=== PATIENT | female | born 1945 | race Caucasian/White ===

== ENCOUNTER 2017-08-24 09:10 | Day surgery (SDC) | payer OTHER ==
[~2017-08-24 09:10] MED LIST: LIDOCAINE HCL 1% MPF SOL ONE; PROPOFOL 500 MG/50 ML EMU IV ONE
[2017-08-24 11:01] VITALS: BP 140/86; PULSE 74; RESP 18; TEMP 97.6; O2SAT 96
== END 2017-08-24 11:22 | disposition home or self-care (01) | DRG 951 ==
LOC: SURG 09:10
PROVIDERS: ATTEND Surgery
DX: Z12.11 Encounter for screening for malignant neoplasm of colon (principal); D12.2 Benign neoplasm of ascending colon; K57.30 Diverticulosis of large intestine without perforation or abscess without bleeding; Z80.0 Family history of malignant neoplasm of digestive organs; Z86.010 Personal history of colon polyps
CPT/HCPCS: J2001; J2704

== ENCOUNTER 2018-10-10 13:11 | Emergency (ER) | payer OTHER ==
[2018-10-10] MEDS ORDERED: SODIUM CHLORIDE 0.9% FLUSH 10 ML SOL IV PRN (13:35)
[2018-10-10 13:47] LABS: HEMATOCRIT 42 % (35-47); MEAN CORPUSCULAR HEMOGLOBIN 30.4 pg (27.0-32.0); MEAN CORPUSCULAR VOLUME 92 fL (81-99)
[2018-10-10 14:00] LABS: INR 0.99 (0.86-1.12)
[2018-10-10 14:03] LABS: BAND NEUTROPHILS % (MANUAL) 2 %; BASOPHILS % (MANUAL) 0 % (0-3); EOSINOPHILS % (MANUAL) 1 % (0-9); LYMPHOCYTES % (MANUAL) 43 % (10-50); MONOCYTES % (MANUAL) 4 % (0-12); NEUTROPHILS % (MANUAL) 50 % (37-80); NORMAL RBCS PRESENT
[2018-10-10 14:04] LABS: ALBUMIN 3.5 gm/dl (3.4-5.0); ALKALINE PHOSPHATASE 87 IU/L (46-116); ALT 23 IU/L (14-63); AST 25 IU/L (15-37); BILIRUBIN,TOTAL 0.4 mg/dl (0.2-1.0); BLOOD UREA NITROGEN 10 mg/dl (7-18); CALCIUM 9.1 mg/dl (8.5-10.1); CARBON DIOXIDE 27.2 mEq/L (21-32); CHLORIDE 95 mMol/L (98-107); CREATINE KINASE 73 U/L (26-192); CREATININE 0.71 mg/dl (0.60-1.00); GLUCOSE 108 mg/dl (74-106); POTASSIUM 4.2 mMol/L (3.5-5.1); SODIUM 130 mMol/L (136-145); TROP I < 0.017 ng/ml (0.000-0.056)
[2018-10-10 14:14] VITALS: TEMP 97
[2018-10-10 16:29] VITALS: O2SAT 96
[2018-10-10 18:29] VITALS: BP 173/90; PULSE 72; RESP 24
== END 2018-10-10 18:14 | disposition home or self-care (01) | DRG 313 ==
LOC: ED 13:11
DX: R07.89 Other chest pain (principal)
CPT/HCPCS: 36415; 71045; 80053; 82550; 84484; 85007; 85027; 85610; 85730; 93005; 99284